=== PATIENT | female | born 1965 | race Caucasian/White ===

== ENCOUNTER → 2019-01-26 | Outpatient (CLI) | payer BC ==
[2015-03-17 23:10] VITALS: BP 148/91
--- NOTE | 2019-01-26 09:53 | RAD ---
DATE: 01/26/2019 EXAM: MAMMO LILIANA SCREENING BILATERAL HISTORY: Routine screening COMPARISON: 02/04/2016 This study was interpreted with the benefit of Computerized Aided Detection (CAD). Breast Density: HETERO The breast parenchyma is heterogenously dense, which could reduce sensitivity of mammography. Breast parenchyma level C. FINDINGS: 2-D and 3-D tomosynthesis imaging was performed in CC and MLO projections. There are multiple smooth nodules in both breasts. Previous ultrasound exams have demonstrated the presence of bilateral breast cysts. There is a cluster of smooth nodules in the lateral aspect left breast, one of which has increased in size now measuring 2 cm in diameter as best seen on left CC tomosynthesis images #39 at approximately the 2-3 o'clock location. No spiculated mass or architectural distortion is seen. Numerous benign type calcifications are again noted. No suspicious microcalcifications have developed. IMPRESSION: 1. Bilateral breast cysts. 2. An enlarging nodule in the lateral aspect of the left breast is also probably a cyst, however, sonographic evaluation is suggested for confirmation. BI-RADS CATEGORY: 0 INCOMPLETE: NEEDS ADDITIONAL IMAGING EVALUATION AND/OR PRIOR MAMMOGRAMS FOR COMPARISON. RECOMMENDED FOLLOW-UP: ADD ADDITIONAL IMAGING PQRS compliance statement: Patient information was entered into a reminder system with a target due date for the next mammogram. Mammography is a sensitive method for finding small breast cancers, but it does not detect them all and is not a substitute for careful clinical examination. A negative mammogram does not negate a clinically suspicious finding and should not result in delay in biopsying a clinically suspicious abnormality. "Our facility is accredited by the [employer] Mammography [employer]."
== END | disposition home or self-care (01) ==
LOC: MAMMO 08:04
PROVIDERS: ATTEND Obstetrics & Gynecology
DX: Z12.31 Encounter for screening mammogram for malignant neoplasm of breast (principal); N60.02 Solitary cyst of left breast; N60.01 Solitary cyst of right breast; N63.20 Unspecified lump in the left breast, unspecified quadrant
CPT/HCPCS: 77063; 77067

== ENCOUNTER → 2019-02-09 | Outpatient (CLI) | payer BC ==
[2015-03-17 23:10] VITALS: BP 148/91
--- NOTE | 2019-02-09 13:38 | RAD ---
Left breast ultrasound, 02/09/2019: History: Breast cysts, enlarging mammographic nodule Recent mammograms demonstrated an enlarging smooth nodule in the lateral aspect of the left breast at the 2-3:00 location. Today's targeted ultrasound exam of that region demonstrates a cluster of smooth cysts. The largest of these measures 1.8 cm while there are also adjacent 1.4 and 1.0 cm cysts. The sonographic findings correlate well with the mammographic appearance. No solid breast mass is seen. IMPRESSION: Left breast cysts. Routine yearly mammographic follow-up is suggested. BI-RADS 2-benign findings
== END | disposition home or self-care (01) ==
LOC: US 12:49
PROVIDERS: ATTEND Family Medicine
DX: N60.02 Solitary cyst of left breast (principal)
CPT/HCPCS: 76641

== ENCOUNTER → 2020-03-23 | Outpatient (CLI) | payer BC ==
[2015-03-17 23:10] VITALS: BP 148/91
--- NOTE | 2020-03-23 17:57 | RAD ---
EXAM: BILATERAL DIGITAL 3D SCREENING MAMMOGRAPHY. HISTORY: Routine mammographic screening. TECHNIQUE: Bilateral digital 3D and tomographic images were obtained in CC and MLO projections. Computer-aided detection was applied. COMPARISON: 01/26/2019. COMPOSITION: C. The breasts are heterogeneously dense, which may obscure small masses. FINDINGS: Multiple bilateral circumscribed or obscured nodules are stable or decreased. These are consistent with multiple cysts. Scattered calcifications are benign. There are no suspicious masses, microcalcifications or architectural distortion. The parenchymal pattern is stable. BI-RADS CATEGORY 2: Benign. RECOMMENDATION: 1. Routine screening mammography in one year. If mammography demonstrates dense breast tissue (heterogenously dense or extremely dense, category C or D), which could hide abnormalities, and if other risk factors for breast cancer have been identified, supplemental screening tests that may be suggested by the ordering physician may be of benefit. Dense breast tissue, in and of itself, is a relatively common condition. Therefore, this information is not provided to cause undue concern, but rather to raise awareness and to promote discussion with the referring physician regarding the presence of other risk factors, in addition to dense breast tissue. The results of this mammography examination is provided to the patient and referring physician. The patient should contact their referring physician if any questions or concerns exist regarding this report. PQRS compliance statement - Patient information was entered into a reminder system with a target due date for the next mammogram. "Our facility is accredited by the [employer] Mammography [employer]." Electronically signed by: Surya Ferrell MD (03/23/2020 5:55 PM) [id number]
== END | disposition home or self-care (01) ==
LOC: MAMMO 08:35
PROVIDERS: ATTEND Nurse Practitioner Women's Health
DX: Z12.31 Encounter for screening mammogram for malignant neoplasm of breast (principal)
CPT/HCPCS: 77063; 77067

== ENCOUNTER → 2021-10-11 | Outpatient (CLI) | payer BC ==
[2015-03-17 23:10] VITALS: BP 148/91
--- NOTE | 2021-10-11 11:26 | RAD ---
Digital bilateral screening mammogram with tomography dated 10/11/2021. INDICATION: 56 years of age asymptomatic female patient presents for screening mammography. . TECHNIQUE: Full field craniocaudal and mediolateral oblique images of both breasts were obtained usi ng digital technique with tomosynthesis and also analyzed with computer-aided detection software. . COMPARISON: 03/23/2020 01/26/2019 .. BREAST COMPOSITION: Category C: The breast tissue is heterogeneously dense, which could obscure detec tion of small masses. FINDINGS: There are couple of small circumscribed nodules in the retroareolar right breast that are unchanged f rom prior studies. No new mass or suspicious clustered microcalcification. IMPRESSION peripheral nesha jose is stable. No architectural distortion. Impression: Stable bilateral mammogram. RECOMMENDATION: Annual screening mammography is recommended, unless clinically indicated sooner based on symptoms or change in physical exam. BIRADS 2: BENIGN This study was interpreted with the benefit of Computerized Aided Detection (CAD). Recommend routine screening follow-up in one year Patient information is entered into the reminder system with a target due date for the next screening mammogram. Mammography is the most sensitive method for finding small breast cancers, but it does not detect the m all and is not a substitute for careful clinical examination. A negative mammogram does not negate a clinically suspicious finding and should not result in delay in biopsying a clinically suspicious a bnormality. "Our facility is accredited by the [employer] Mammography [employer]." Electronically signed by: Froylan Logan MD (10/11/2021 11:24 AM) [id number]
== END ==
LOC: MAMMO 09:56
PROVIDERS: ATTEND Obstetrics & Gynecology
DX: Z12.31 Encounter for screening mammogram for malignant neoplasm of breast (principal); N63.10 Unspecified lump in the right breast, unspecified quadrant
CPT/HCPCS: 77063; 77067